=== PATIENT | male | born 1950 | race Two or more races ===

== ENCOUNTER 2021-11-26 18:50 | Emergency (ER) | payer OTHER ==
[~2021-11-26] VITALS: Ht 177.8 cm; Wt 83.5 kg
[2021-11-26 18:51] VITALS: BP 170/96
== END 2021-11-27 02:53 | disposition left against medical advice (07) ==
LOC: ER 18:57
DX: I10 Essential (primary) hypertension (principal); R51.9 Headache, unspecified; Z53.21 Procedure and treatment not carried out due to patient leaving prior to being seen by health care provider